=== PATIENT | female | born 1945 | race Caucasian/White ===

== ENCOUNTER 2023-08-29 09:05 | Emergency (ER) | payer OTHER ==
--- OUTSIDE RECORDS SUMMARY | 2023-08-29 09:10 | XMS REPORT | Continuity of Care Document ---
Author Name Unknown Address [address] [facility] [address] [place] [address] [facility] [address] [facility] [address] [place] [address] Care Team Providers Care [place] Name Role Phone DEJA HANKS Attending Clinician Unavailable RADIOLOGY Attending Clinician Unavailable Radiology Attending Clinician Unavailable Bonnie-Mbayo_A_AH Attending Clinician Unavailable Bonnie-Mbayo_A_AH Admitting Clinician Unavailable Payers Payer Name Policy Type Policy Number Effective Date Expirati on Date Source [facility] CLASS[facility]VALUE [id number] 2019 00:00:00 [facility]MEDICARE REPLACEMENT/ADVANT AGE - HMO) [id number] 2019 00:00:00 Allergies, Adverse Reactions, Alerts Allergy Name Allergy Type Status Severity Reaction(s) Onset Date Inactive Date Treating Clinician Comments Source NO KNOWN ALLERGIE S Drug Class Active [facility] Social History Social Habit Start Date Stop Date Quantity Comments Source Sex Assigned At [facility] Smoking Status Start Date Stop Date Source Unknown if ever smoked [facility] Procedures Procedure Date / Time Performed Performing Clinicia n Source XR CHEST 2 VW 2019-09-04 16:01:06 Robbin Romeo [facility] Encounters Start Date/Time End Date/Time Encounter Type Admission Type Attending Clinicians Care Facility Care Department Encounter ID Source 2020-04-26 13:25:00 2020-04-26 13:25:00 Outpatient [facility] [id number] [facility] 2020-03-29 13:20:00 2020-03-29 13:20:00 Outpatient DEJA MOSS [facility] [id number] [facility] 2019-10-01 00:00:00 2019-10-01 00:00:00 Outpatient R RADIOLOGY [facility] [id number] [facility] 2019-09-24 00:00:00 2019-09-24 00:00:00 Outpatient R RADIOLOGY [facility] [id number] [facility] 2019-09-04 10:40:00 2019-09-04 23:59:00 Hospital Encounter Radiology [facility] [id number] [facility] 2019-09-04 00:00:00 2019-09-04 00:00:00 Outpatient R RADIOLOGY [facility] [id number] [facility] 2019-05-02 03:48:00 2019-05-02 03:48:00 Outpatient Bonnie-Mbayo _A_AH VFP VFP [id number] [facility] 2019-05-02 03:48:00 2019-05-02 03:48:00 Outpatient Bonnie-Mbayo _A_AH VFP VFP [id number] [facility] 2019-04-10 07:19:00 2019-04-10 07:19:00 Outpatient Bonnie-Mbayo _A_AH VFP VFP [id number] [facility] Results Test Description Test Time Test Comments Results Resul t Comments Source XR CHEST 2 VW 2019-08-21 5 16:03:19 FINDINGS/IMPRESSION: The lungs are adequately expanded and clear without focal consolidation. Nopleural effusion or pneumothorax is visualized. The cardiomediastinal silhouette is normal in size. No acute osseous abnormality is identified. EXAM: XR CHEST 2 VW HISTORY: ?74 yearsyear-old Female [employer] COMPARISON: None [facility], [facility]iant Results Inft User - 09/04/2019 11:04 AM CDTEXAM: XR CHEST 2 VWHISTORY: 74 yearsyear-old Female N[employer]WE[employer] COMPARISON: NoneIMPRESSIONFINDING S/IMPRESSION:The lungs are adequately expanded and clear without focal consolidation. Nopleural effusion or pneumothorax is visualized.The cardiomediastinal silhouette is normal in size.No acute osseous abnormality is identified. [facility]
--- NOTE | 2023-08-29 10:23 | RAD REPORT ---
EXAM DESCRIPTION: CT - Facial Bones W/ Mpr - 08/29/2023 9:37 am CLINICAL HISTORY: Facial injury with pain COMPARISON: None TECHNIQUE: Computed axial tomography of the face was obtained. Coronal and sagittal reconstruction w as performed. All CT scans are performed using dose optimization technique as appropriate and may include automated exposure control or mA/KV adjustment according to patient size. FINDINGS: 5.6 centimeter mass left submental region. Minimally displaced fracture of left mandible parasymphysis A TMJ dislocation is not noted. The globes are intact. Fluid within the sinuses is not seen. IMPRESSION: Minimally displaced fracture left mandible parasymphysis 5.6 centimeter mass left submental region presumably hematoma
[2023-08-29] MEDS ORDERED: CEPHALEXIN 250 MG CAP ONE (11:29)
[2023-08-29] MEDS ORDERED: TRAMADOL HCL 50 MG TAB ONE (11:30)
--- NOTE | 2023-08-29 12:00 | EDPHYS ---
Physician Documentation [facility] Name: Adriana Askew Age: 78 yrs Sex: Female : 1945 Arrival Date: 08/29/2023 Time: 09:05 Bed 18 Private MD: ED Physician Chris Farias HPI: 08/28 12:48 This 78 yrs old Female presents to ER via Ambulatory with complaints of Fall Injury, rn Pain All Over. 12:48 Details of fall: The patient fell from an upright position, while walking. Onset: The rn symptoms/episode began/occurred 1 week(s) ago. Associated injuries: The patient sustained injury to the head. Severity of symptoms: At their worst the symptoms were moderate, in the emergency department the symptoms are unchanged. The patient has not experienced similar symptoms in the past. Patient states fall from standing 1 week ago. Struck chin on ground. Saw her dentist who did a Panorex and was negative for fracture. Patient has had a hematoma underneath the jaw since then and is still having pain when trying to eat and talk so came in for evaluation.. Historical: - Allergies: 09:29 No Known Allergies; kc6 - PSHx: 09:29 Arthroplasty of knee; arthroplasty of ALFRED hips; kc6 - Immunization history: Last tetanus immunization: - up to date. - Infectious Disease History:: Denies. - Social history:: Smoking status: Patient denies any tobacco usage or history of. - Family history:: not pertinent. - Hospitalizations: : No recent hospitalization is reported. ROS: 12:48 Constitutional: Negative for fever, chills, and weight loss, ENT: Positive for jaw pain rn and injury Neck: Negative for injury, pain, and swelling, Back: Negative for injury and pain, MS/Extremity: Negative for injury and deformity, Neuro: Negative for headache, weakness, numbness, tingling, and seizure, Exam: 12:48 Constitutional: This is a well developed, well nourished patient who is awake, alert, rn and in no acute distress. ENT: Mild tenderness mid to the left mandible with submental hematoma. No trismus noted. No intraoral injury noted. Neck: No Meningismus. Neuro: Awake and alert, GCS 15, oriented to person, place, time, and situation. Cranial nerves II-XII grossly intact. Motor strength 5/5 in all extremities. Sensory grossly intact. Cerebellar exam normal. Normal gait. Vital Signs: 09:25 BP 144 / 99; Pulse 102; Resp 18 S; Temp 98.2(O); Pulse Ox 98% on R/A; Weight 79.38 kg kc6 (R); Height 5 ft. 8 in. (R); 10:25 BP 140 / 89; Pulse 90; Resp 18 S; Pulse Ox 96% on R/A; kc6 12:08 BP 195 / 99; kc6 09:25 Body Mass Index 26.61 (79.38 kg, 172.72 cm) kc6 [place] Coma Score: 09:25 Eye Response: spontaneous(4). Motor Response: obeys commands(6). Verbal Response: kc6 oriented(5). Total: 15. Trauma Score (Adult): 09:25 Eye Response: spontaneous(1); Verbal Response: oriented(1); Motor Response: obeys kc6 commands(2); Systolic BP: > 89 mm Hg(4); Respiratory Rate: 10 to 29 per min(4); Stef Score: 15; Trauma Score: 12 MDM: 09:14 Patient medically screened. rn 08/28 09:24 Order name: CT Facial Bones W/O Con; Complete Time: 10:50 rn Administered Medications: 11:35 Drug: traMADol PO 50 mg PO once Route: PO; zl 12:09 Follow up: Response: No adverse reaction; Pain is decreased; RASS: Alert and Calm (0) kc6 11:35 Drug: Cephalexin PO 500 mg PO once Route: PO; zl 12:08 Follow up: Response: No adverse reaction kc Disposition Summary: 08/29/23 12:00 Discharge Ordered Notes: Location: Home rn Problem: new rn Symptoms: have improved rn Condition: Stable rn Diagnosis - Fracture of mandible rn Followup: rn - With: Bernard Omer DDS - When: 5 - 6 days - Reason: Recheck today's complaints, Re-evaluation by your physician Discharge Instructions: - Discharge Summary Sheet rn - Mandibular Fracture rn Forms: - Medication Reconciliation Form rn - Antibiotic rn post partum - Prescription Opioid Use rn - Patient Portal Instructions rn - Leadership Thank You Letter rn Prescriptions: - Cephalexin 500 mg Oral Capsule - take 1 capsule ORAL route every 12 hours for 10 days; 20 capsule; Refills: 0, rn Product Selection Permitted - Tramadol 50 mg Oral Tablet - take 1 tablet ORAL route every 8 hours as needed; 12 tablet; Refills: 0, rn Product Selection Permitted Signatures: Dispatcher [employer] Chris Reyes MD MD rn Campbell, Kaitlyn, RN RN kc6 El Shipman RN RN zl Corrections: (The following items were deleted from the chart) 12:51 12:48 Constitutional: This is a well developed, well nourished patient who is awake, rn alert, and in no acute distress. ENT: Mild tenderness mid to the left mandible with submental hematoma. No trismus noted. No intraoral injury noted. Neck: No Meningismus. rn
--- NOTE | 2023-08-29 12:00 | ER ---
Nurse's Notes [facility] Name: Adriana Askew Age: 78 yrs Sex: Female : 1945 Arrival Date: 08/29/2023 Time: 09:05 Bed 18 Private MD: Diagnosis: Fracture of mandible Presentation: 08/28 09:25 Chief complaint: Patient states: she fell while leaving the bank on the [place]. denies kc6 LOC, takes Ecotrin daily. Care prior to arrival: None. Mechanism of Injury: Fall from standing position. Trauma event details: Injury occurred in the [facility], Injury occurred: in a public building. Injury occurred: August 21, 2023. 09:25 Acuity: AMMY 3 kc6 09:25 Method Of Arrival: Ambulatory kc6 09:28 Coronavirus screen: At this time, the client does not indicate any symptoms associated kc6 with coronavirus-19. Ebola Screen: No symptoms or risks identified at this time. Initial Sepsis Screen: Does the patient meet any 2 criteria? HR > 90 bpm. Does the patient have a suspected source of infection? No. Patient's initial sepsis screen is negative. Risk Assessment: Do you want to hurt yourself or someone else? Patient reports no desire to harm self or others. Onset of symptoms was August 21, 2023. Trauma Activation: Not Applicable Physician: ED Physician; Name: ; Notified At: ; Arrived At: Physician: General Surgeon; Name: ; Notified At: ; Arrived At: Physician: Radiology; Name: ; Notified At: ; Arrived At: Physician: Respiratory; Name: ; Notified At: ; Arrived At: Physician: Lab; Name: ; Notified At: ; Arrived At: Historical: - Allergies: : No Known Allergies; kc6 - PSHx: : Arthroplasty of knee; arthroplasty of ALFRED hips; kc6 - Immunization history: Last tetanus immunization: - up to date. - Infectious Disease History:: Denies. - Social history:: Smoking status: Patient denies any tobacco usage or history of. - Family history:: not pertinent. - Hospitalizations: : No recent hospitalization is reported. Screenin: Abuse screen: Denies threats or abuse. Denies injuries from another. Tuberculosis kc6 screening: No symptoms or risk factors identified. 09:29 [facility] ED Fall Risk Assessment (Adult) History of falling in the last 3 months, kc6 including since admission Yes- single mechanical fall (1 pt) Confusion or Disorientation No (0 pts) Intoxicated or Sedated No (0 pts) Impaired Gait No (0 pts) Mobility Assist Device Used No (0 pt) Altered Elimination No (0 pt) Score/Fall Risk Level 0 - 2 = Low Risk. Nutritional screening: No deficits noted. Primary Survey: 09:25 NO uncontrolled hemorrhage observed. A: The client is awake and alert. The airway is kc6 patent. Breathing/Chest: Spontaneous respiratory effort, equal unlabored respirations, breath sounds clear bilaterally, regular pattern, symmetrical chest rise and fall. Circulation: No external hemorrhage present. Regular and strong central pulse, skin warm/dry/normal color. Disability Pupils are equal, round, reactive to light and accommodation. Client is alert. Exposure/Environment: All clothing and personal items were removed. Forensic evidence collection is not deemed to be indicated at this time. Items placed in patient belonging bag. There is no evidence of uncontrolled external bleeding. Obvious injury(ies) are noted at this time: swelling to the left lower jaw A warming method has been applied: A warm blanket has been provided to the patient. 10:25 Reassessment Alertness and Airway: Awake and alert. The airway is patent. Breathing: kc6 Spontaneous respiratory effort, equal unlabored respirations, breath sounds clear bilaterally, regular pattern with symmetrical chest rise and fall. Circulation: No external hemorrhage noted. Regular and strong central pulse, skin warm/dry/normal color. Disability: Pupils Pupils are equal, round, reactive to light and accomodation. Alert. Assessment: 09:25 General: Appears in no apparent distress. comfortable, well groomed, well developed, kc6 Behavior is calm, cooperative, appropriate for age. Pain: Complains of pain in face and mouth. Neuro: Level of Consciousness is awake, alert, obeys commands, Oriented to person, place, time, situation, Appropriate for age. EENT: No signs and/or symptoms were reported regarding the EENT system. Cardiovascular: Capillary refill < 3 seconds. Respiratory: Airway is patent Trachea midline Respiratory effort is even, unlabored, Respiratory pattern is regular, symmetrical. GI: No signs and/or symptoms were reported involving the gastrointestinal system. : No signs and/or symptoms were reported regarding the genitourinary system. Derm: No signs and/or symptoms reported regarding the dermatologic system. Skin is intact, is healthy with good turgor, Skin is pink, warm \T\ dry. Musculoskeletal: Circulation, motion, and sensation intact. Capillary refill < 3 seconds, Range of motion: intact in all extremities, Swelling present in neck. 10:25 Reassessment: Patient appears in no apparent distress at this time. No changes from kc6 previously documented assessment. Patient and/or family updated on plan of care and expected duration. Pain level reassessed. Patient is alert, oriented x 3, equal unlabored respirations, skin warm/dry/pink. 11:26 Reassessment: Patient appears in no apparent distress at this time. No changes from kc6 previously documented assessment. Patient and/or family updated on plan of care and expected duration. Pain level reassessed. Patient is alert, oriented x 3, equal unlabored respirations, skin warm/dry/pink. 12:08 Reassessment: Patient appears in no apparent distress at this time. No changes from kc6 previously documented assessment. Patient and/or family updated on plan of care and expected duration. Pain level reassessed. Patient is alert, oriented x 3, equal unlabored respirations, skin warm/dry/pink. Vital Signs: 09:25 BP 144 / 99; Pulse 102; Resp 18 S; Temp 98.2(O); Pulse Ox 98% on R/A; Weight 79.38 kg kc6 (R); Height 5 ft. 8 in. (R); 10:25 BP 140 / 89; Pulse 90; Resp 18 S; Pulse Ox 96% on R/A; kc6 12:08 BP 195 / 99; kc6 09:25 Body Mass Index 26.61 (79.38 kg, 172.72 cm) kc6 Stef Coma Score: 09:25 Eye Response: spontaneous(4). Motor Response: obeys commands(6). Verbal Response: kc6 oriented(5). Total: 15. Trauma Score (Adult): 09:25 Eye Response: spontaneous(1); Verbal Response: oriented(1); Motor Response: obeys kc6 commands(2); Systolic BP: > 89 mm Hg(4); Respiratory Rate: 10 to 29 per min(4); Stef Score: 15; Trauma Score: 12 ED Course: 09:08 Patient arrived in ED. mr 09:14 Chris Farias MD is Attending Physician. rn 09:20 Adriana Lopez, ROSITA is Primary Nurse. kc6 09:25 Patient has correct armband on for positive identification. Bed in low position. Call kc6 light in reach. Side rails up X 1. Adult w/ patient. 09:26 Triage completed. kc6 09:29 Arm band placed on. kc6 09:30 Thermoregulation: warm blanket given to patient. kc6 09:45 CT Facial Bones W/O Con In Process Unspecified. EDMS 11:59 Bernard Omer DDS is Referral Physician. rn 12:09 No provider procedures requiring assistance completed. Patient did not have IV access kc6 during this emergency room visit. Administered Medications: 11:35 Drug: traMADol PO 50 mg PO once Route: PO; zl 12:09 Follow up: Response: No adverse reaction; Pain is decreased; RASS: Alert and Calm (0) kc6 11:35 Drug: Cephalexin PO 500 mg PO once Route: PO; zl 12:08 Follow up: Response: No adverse reaction kc6 Medication: 12:09 VIS not applicable for this client. kc6 Outcome: 12:00 Discharge ordered by . rn 12:09 Discharged to home ambulatory, kc6 12:09 Condition: good 12:09 Discharge instructions given to patient, family, Instructed on discharge instructions, follow up and referral plans. no driving heavy equipment, medication usage, Demonstrated understanding of instructions, follow-up care, medications, Prescriptions given X 2, 12:09 Patient left the ED. kc6 Signatures: Dispatcher [employer] [facility] Kymberly Cox, [facility] Reg Chris Farias MD MD rn Adriana Lopez RN RN kc6 El Shipman RN RN zl
[2023-08-29 12:27] VITALS: BP 195/99; TEMP 98.2; O2SAT 96
== END 2023-08-29 12:09 | disposition home or self-care (01) ==
LOC: ER 09:05
DX: S02.66XA Fracture of symphysis of mandible, initial encounter for closed fracture (principal); W18.30XA Fall on same level, unspecified, initial encounter; Y93.9 Activity, unspecified; Y92.9 Unspecified place or not applicable; Z96.659 Presence of unspecified artificial knee joint; Z96.643 Presence of artificial hip joint, bilateral
CPT/HCPCS: 70486; 76377; 99284

== ENCOUNTER 2023-12-23 02:55 | Emergency (ER) | payer OTHER ==
--- OUTSIDE RECORDS SUMMARY | 2023-12-23 02:58 | XMS REPORT | Continuity of Care Document ---
Author Name Unknown Address [address] [facility] [address] [place] [address] [facility] Address [address] [facility] [address] [place] [address] Care Team Providers Care Drier And Evaporator Operator Name Role Phone DEJA HANKS Attending Clinician Unavailable RADIOLOGY Attending Clinician Unavailable Radiology Attending Clinician Unavailable Bonnie-Mbayo_A_AH Attending Clinician Unavailable Bonnie-Mbayo_A_AH Admitting Clinician Unavailable Payers Payer Name Policy Type Policy Number Effective Date Expirati on Date Source [employer] PLUS CLASSIC/VALUE [id number] 2019 00:00:00 [facility] [place] (MEDICARE REPLACEMENT/ADVANT AGE - HMO) [id number] 2019 00:00:00 Allergies, Adverse Reactions, Alerts Allergy Name Allergy Type Status Severity Reaction(s) Onset Date Inactive Date Treating Clinician Comments Source NO KNOWN ALLERGIE S Drug Class Active [facility] Social History Social Habit Start Date Stop Date Quantity Comments Source Sex Assigned At [facility] Smoking Status Start Date Stop Date Source Unknown if ever smoked [facility] Procedures Procedure Date / Time Performed Performing Clinicia n Source XR CHEST 2 VW 2019-09-04 16:01:06 [facility] Encounters Start Date/Time End Date/Time Encounter Type Admission Type Attending Clinicians Care Facility Care Department Encounter ID Source 2020-04-26 13:25:00 2020-04-26 13:25:00 Outpatient [facility] [id number] [facility] 2020-03-29 13:20:00 2020-03-29 13:20:00 Outpatient DEJA MOSS [facility] [id number] [facility] 2019-10-01 00:00:00 2019-10-01 00:00:00 Outpatient R RADIOLOGY [facility] [id number] [facility] 2019-09-24 00:00:00 2019-09-24 00:00:00 Outpatient R RADIOLOGY [facility] [id number] [facility] 2019-09-04 10:40:00 2019-09-04 23:59:[address] [facility] [id number] [facility] 2019-09-04 00:00:00 2019-09-04 00:00:00 Outpatient R RADIOLOGY [facility] [id number] [facility] 2019-05-02 03:48:00 2019-05-02 03:48:00 Outpatient Bonnie-Mbayo _A_AH VFP VFP [id number] [facility] 2019-05-02 03:48:00 2019-05-02 03:48:00 Outpatient Bonnie-Mbayo _A_AH VFP VFP [id number] [facility] 2019-04-10 07:19:00 2019-04-10 07:19:00 Outpatient Bonnie-Mbayo _A_AH VFP VFP [id number] [facility] Results Test Description [...] in size.No acute osseous abnormality is identified. [facility]
[2023-12-23] MEDS ORDERED: NA CHLORIDE 0.9% 1,000 ML ONE (03:33)
[2023-12-23] MEDS ORDERED: ONDANSETRON 4 MG/2 ML VIAL ONE (03:33)
[2023-12-23] MEDS ORDERED: FENTANYL CITR 100 MCG/2 ML ONE (03:33)
[2023-12-23 03:54] LABS: Absolute Basophils 0.1 K/uL (0-0.5); Absolute Eosinophils 0.3 K/uL (0-0.5); Absolute Lymphocytes (CBC) 2.6 K/uL (0.7-4.9); Absolute Monocytes 0.8 K/uL (0.1-1.3); Basophils % 0.6 % (0-1.3); Eosinophils % 2.6 % (0-4.4); Hematocrit 42.4 % (36.0-45.0); Hemoglobin 13.9 g/dL (12.0-15.0); Lymphocytes % 24.2 % (15.3-44.8); MCH 31.6 pg (27.0-35.0); MCHC 32.7 g/dL (32.0-36.0); MCV 96.6 fL (80-100); MPV 8.1 fL (7.6-11.3); Monocytes % 7.3 % (3.3-12.3); Neutrophils % 65.3 % (41.7-73.7); Platelets 259 thou/uL (152-406); RBC Red Blood Cell Count 4.39 M/uL (3.86-4.86); Red Cell Distribution Width 13.7 % (12.1-15.2)
[2023-12-23 04:16] LABS: PT Prothrombin Time 11.4 SECONDS (9.4-12.5); Protime INR 1.02
[2023-12-23 04:28] LABS: ALT/SGPT 27 U/L (13-56); AST/SGOT 21 U/L (15-37); Albumin 3.9 g/dL (3.4-5.0); Albumin/Globulin Ratio 1.3 (1.1-1.8); Alkaline Phosphatase 57 U/L (45-117); BUN Blood Urea Nitrogen 38 mg/dL (7-18); Bicarbonate 25 mEq/L (21-32); Bilirubin Total 0.6 mg/dL (0.2-1.0); Glomerular Filtration Rate 46 ml/min (=/>90); Glucose Level 101 mg/dL (74-106); Magnesium 1.9 mg/dL (1.6-2.4); NT PRO-BNP 419 pg/mL (<450); Protein, Total 6.9 g/dL (6.4-8.2); Sodium Level 138 mEq/L (136-145)
[2023-12-23 04:30] LABS: Bilirubin Direct < 0.2 mg/dL (0-0.2); Bilirubin Indirect, Calculated 0.4 mg/dL (0.2-0.8)
--- NOTE | 2023-12-23 05:03 | ER ---
Nurse's Notes [facility] Name: Adriana Askew Age: 78 yrs Sex: Female : 1945 Arrival Date: 12/23/2023 Time: 02:55 Bed 14 Private MD: Diagnosis: Fall on same level, unspecified;Displaced fracture of greater trochanter of left femur-periprosthetic;Unspecified kidney failure Presentation: 12/22 03:01 Chief complaint: Patient states: I WAS WALKING WITH MY WALKER WHEN SUDDENLY FELL. HIT ha1 BACK OF HEAD, NO BLEEDING, NO LOC. PAIN AT LEFT HIP, LEG AND BACK. 03:01 Coronavirus screen: Vaccine status: Patient reports receiving the 2nd dose of the covid ha1 vaccine. [employer]. Ebola Screen: No symptoms or risks identified at this time. Initial Sepsis Screen: Does the patient meet any 2 criteria? No. Patient's initial sepsis screen is negative. Does the patient have a suspected source of infection? No. Patient's initial sepsis screen is negative. Risk Assessment: Do you want to hurt yourself or someone else? Patient reports no desire to harm self or others. Onset of symptoms was December 23, 2023. 03:01 Method Of Arrival: Wheelchair ha1 03:01 Acuity: AMMY 3 ha1 03:15 Care prior to arrival: None. Mechanism of Injury: Fall from standing position. Trauma br2 event details: Injury occurred in the [facility], Injury occurred: at home. Injury occurred: December 23, 2023. Triage Assessment: 03:01 General: Appears uncomfortable, Behavior is cooperative. Pain: Complains of pain in ha1 LEFT HIP, LEFT LEG, AND BACK. 03:01 Neuro: Level of Consciousness is awake, alert, obeys commands, Oriented to person, ha1 place, time, situation. Respiratory: Airway is patent Respiratory effort is even, unlabored, Respiratory pattern is regular, symmetrical. Historical: - Allergies: 03:22 No Known Allergies; ha1 - Home Meds: 03:22 Metoprolol Tartrate Oral [Active]; Aspirin Oral [Active]; atorvastatin oral [Active]; ha1 amlodipine oral [Active]; citalopram oral [Active]; - PMHx: 03:22 Hypercholesterolemia; Hypertensive disorder; kidney disease; Diabetes mellitus; ha1 - PSHx: 03:22 arthroplasty of ALFRED hips; Arthroplasty of knee; ha1 - Immunization history:: Adult Immunizations up to date, Client reports receiving the 2nd dose of the Covid vaccine, Last tetanus immunization: up to date Flu vaccine is up to date. - Infectious Disease History:: Denies. - Immunization history: Last tetanus immunization: unknown. - Social history:: Smoking status: Patient denies any tobacco usage or history of. - Family history:: not pertinent. Screenin:15 [facility] ED Fall Risk Assessment (Adult) History of falling in the last 3 months, br2 including since admission Yes- single mechanical fall (1 pt) Confusion or Disorientation No (0 pts) Intoxicated or Sedated No (0 pts) Impaired Gait No (0 pts) Mobility Assist Device Used No (0 pt) Altered Elimination No (0 pt) Score/Fall Risk Level 0 - 2 = Low Risk Oriented to surroundings. Abuse screen: Denies threats or abuse. Denies injuries from another. Nutritional screening: No deficits noted. Tuberculosis screening: No symptoms or risk factors identified. Primary Survey: 03:15 NO uncontrolled hemorrhage observed. Breathing/Chest: Spontaneous respiratory effort, br2 equal unlabored respirations, breath sounds clear bilaterally, regular pattern, symmetrical chest rise and fall. Respiratory effort: spontaneous, Breath sounds: clear, Respiratory pattern: regular, Chest inspection: symmetrical rise and fall of the chest. Circulation: No external hemorrhage present. Regular and strong central pulse, skin warm/dry/normal color. Pulses: palpable right radial artery, left radial artery and left dorsalis pedis artery. Circulation: Skin color: pink, Skin temperature: warm. Disability Client is alert. Client responds to verbal stimuli. Client reponds to painful stimuli. Exposure/Environment: A warming method has been applied: A warm blanket has been provided to the patient. Reassessment. 06:43 Reassessment Breathing: Spontaneous respiratory effort, equal unlabored respirations, br2 breath sounds clear bilaterally, regular pattern with symmetrical chest rise and fall. Respiratory effort Spontaneous Unlabored Breath sounds Clear Respiratory pattern Regular Chest inspection Symmetrical. Secondary Survey: 03:15 HEENT: No deficits noted. Gastrointestinal: Abdomen is soft, Bowel sounds present in br2 all quadrants. Palpation No deficit noted. : No signs and/or symptoms were reported regarding the genitourinary system. Assessment: 03:15 Reassessment: Patient and/or family updated on plan of care and expected duration. Pain br2 level reassessed. Patient is alert, oriented x 3, equal unlabored respirations, skin warm/dry/pink. General: Appears uncomfortable, Behavior is calm, cooperative. Pain: Complains of pain in lateral aspect of left knee. Neuro: [place] Agitation-Sedation Scale (RASS): 0 - Alert and Calm Level of Consciousness is awake, alert, obeys commands, Oriented to person, place, time, situation. EENT: No signs and/or symptoms were reported regarding the EENT system. Cardiovascular: Capillary refill < 3 seconds. Respiratory: Airway is patent Respiratory effort is even, unlabored, Respiratory pattern is. GI: Abdomen is flat, non-distended. : No signs and/or symptoms were reported regarding the genitourinary system. Derm: Skin is intact, Skin is dry, Skin is normal, Skin temperature is warm. Musculoskeletal: Circulation, motion, and sensation intact. Capillary refill < 3 seconds, Range of motion: intact in all extremities. Vital Signs: 03:01 BP 162 / 82; Pulse 63; Resp 17 S; Temp 97.6(T); Pulse Ox 100% on R/A; Weight 72.57 kg; ha1 Height 5 ft. 6 in. ; 05:50 BP 131 / 68; Pulse 63; Resp 18; Pulse Ox 97% ; Pain 3/10; br2 06:42 BP 134 / 70; Pulse 61; Resp 18 S; Temp 97.2; Pulse Ox 96% on R/A; Pain 3/10; br2 03:01 Body Mass Index 25.82 (72.57 kg, 167.64 cm) ha1 05:50 Pain Scale: Adult br2 06:42 Pain Scale: Adult br2 Stef Coma Score: 03:15 Eye Response: spontaneous(4). Motor Response: obeys commands(6). Verbal Response: br2 oriented(5). Total: 15. Trauma Score (Adult): 03:15 Eye Response: spontaneous(1); Verbal Response: oriented(1); Motor Response: obeys br2 commands(2); Systolic BP: > 89 mm Hg(4); Respiratory Rate: 10 to 29 per min(4); Stef Score: 15; Trauma Score: 12 ED Course: 02:58 Patient arrived in ED. [email or web address] 03:03 Yovani Cazares MD is Attending Physician. ga 03:15 Patient has correct armband on for positive identification. Bed in low position. Call br2 light in reach. Side rails up X 1. 03:15 Provided Education on: PLAN OF CARE. br2 03:16 Garima Laguna, ROSITA is Primary Nurse. br2 03:22 Triage completed. ha1 03:30 Thermoregulation: warm blanket given to patient. br2 03:37 Inserted saline lock: 20 gauge in right antecubital area, using aseptic technique. br2 Blood collected. Flushed with 10 mL NS. 03:40 EKG done, by proc tech. af3 03:46 XRAY Chest (1 view) In Process Unspecified. EDMS 03:52 Basic Metabolic Panel Sent. br2 03:52 CBC with Diff Sent. br2 03:52 LFT's Sent. br2 03:52 Magnesium Sent. br2 03:52 NT PRO-BNP Sent. br2 03:52 PT-INR Sent. br2 03:52 Troponin HS Sent. br2 04:25 CT Head C Spine In Process Unspecified. EDMS 04:25 CT Chest Abdomen Pelvis W/O Contrast In Process Unspecified. EDMS 05:05 Pelvis XRAY In Process Unspecified. EDMS 05:05 Hip Left 2 View XRAY In Process Unspecified. EDMS 05:05 Femur Left XRAY In Process Unspecified. EDMS 05:05 Knee Left 3 View XRAY In Process Unspecified. EDMS 05:05 Tib Fib Left XRAY In Process Unspecified. EDMS 05:28 Coats cath inserted, using sterile technique, 16 Fr., by ED staff, balloon inflated, to ha1 gravity drainage, urine specimen collected. 05:49 No provider procedures requiring assistance completed. br2 06:43 Patient maintains SpO2 saturation greater than 95% on room air. br2 06:44 Patient transferred, IV remains in place. br2 06:44 Arm band placed on. br2 Administered Medications: 03:37 Drug: NS 0.9% IV 500 ml 500 ml IV at 1 bolus once; to be given as a bolus over 30 br2 minutes Volume: 500 ml; Route: IV; Rate: 1 bolus; Site: right antecubital; 04:15 Follow up: IV Status: Completed infusion; IV Intake: 500ml br2 03:37 Drug: fentaNYL (PF) IVP 25 mcg IVP once Route: IVP; Site: right antecubital; br2 04:00 Follow up: Response: No adverse reaction br2 03:37 Drug: Ondansetron IVP 4 mg IVP once; over 2 minutes Route: IVP; Site: right antecubital;br2 04:00 Follow up: Response: No adverse reaction br2 Medication: 06:44 VIS not applicable for this client. br2 Intake: 04:15 IV: 500ml; Total: 500ml. br2 05:50 IV: 500ml; Total: 1000ml. br2 Output: 05:50 Urine: 300ml (Coats); Total: 300ml. br2 Outcome: 05:03 ER care complete, transfer ordered by MD. koroma 05:49 PENDING TRANSFERPatient's length of stay extended due to br2 06:43 Transferred by ground EMS [facility]. to [facility], Transfer form br2 completed. X-rays sent w/ patient. 06:43 Condition: stable 06:45 Patient left the ED. br2 Signatures: Dispatcher [employer] EDMS Yovani Cazares MD MD cha Jeffries, Jennifer [email or web address] Valeria Burrell RN RN ha1 Garima Laguna RN RN br2 Bhakti Dong
--- NOTE | 2023-12-23 05:03 | EDPHYS ---
Physician Documentation [facility] Name: Adriana Askew Age: 78 yrs Sex: Female : 1945 Arrival Date: 12/23/2023 Time: 02:55 Bed 14 Private MD: JULIO Physician Yovani Cazares HPI: 12/22 03:49 This 78 yrs old Female presents to ER via Wheelchair with complaints of Fall ga Injury, LEFT SIDED PAIN. 03:49 Details of fall: The patient fell from an upright position, while walking. Onset: The ga symptoms/episode began/occurred yesterday. Associated injuries: The patient sustained pelvis and left leg. Severity of symptoms: At their worst the symptoms were mild, moderate, in the emergency department the symptoms are unchanged. The patient has not experienced similar symptoms in the past. Historical: - Allergies: 03:22 No Known Allergies; ha1 - Home Meds: 03:22 Metoprolol Tartrate Oral [Active]; Aspirin Oral [Active]; atorvastatin oral [Active]; ha1 amlodipine oral [Active]; citalopram oral [Active]; - PMHx: 03:22 Hypercholesterolemia; Hypertensive disorder; kidney disease; Diabetes mellitus; ha1 - PSHx: 03:22 arthroplasty of ALFRED hips; Arthroplasty of knee; ha1 - Immunization history:: Adult Immunizations up to date, Client reports receiving the 2nd dose of the Covid vaccine, Last tetanus immunization: up to date Flu vaccine is up to date. - Infectious Disease History:: Denies. - Immunization history: Last tetanus immunization: unknown. - Social history:: Smoking status: Patient denies any tobacco usage or history of. - Family history:: not pertinent. ROS: 03:49 Constitutional: Negative for fever, chills, and weight loss, Eyes: Negative for injury, ga pain, redness, and discharge, ENT: Negative for injury, pain, and discharge, Neck: Negative for injury, pain, and swelling, Cardiovascular: Negative for chest pain, palpitations, and edema, Respiratory: Negative for shortness of breath, cough, wheezing, and pleuritic chest pain, Abdomen/GI: Negative for abdominal pain, nausea, vomiting, diarrhea, and constipation, Back: Negative for injury and pain, : Negative for injury, bleeding, discharge, and swelling, Skin: Negative for injury, rash, and discoloration, Psych: Negative for depression, anxiety, suicide ideation, homicidal ideation, and hallucinations, Allergy/Immunology: Negative for hives, rash, and allergies, Endocrine: Negative for neck swelling, polydipsia, polyuria, polyphagia, and marked weight changes, Hematologic/Lymphatic: Negative for swollen nodes, abnormal bleeding, and unusual bruising, 03:49 MS/extremity: Positive for decreased range of motion, ecchymosis, pain, of the buttocks and left leg, Exam: 03:49 Constitutional: This is a well developed, well nourished patient who is awake, alert, ga and in no acute distress. Eyes: Pupils equal round and reactive to light, extra-ocular motions intact. Lids and lashes normal. Conjunctiva and sclera are non-icteric and not injected. Cornea within normal limits. Periorbital areas with no swelling, redness, or edema. ENT: Nares patent. No nasal discharge, no septal abnormalities noted. Tympanic membranes are normal and external auditory canals are clear. Oropharynx with no redness, swelling, or masses, exudates, or evidence of obstruction, uvula midline. Mucous membranes moist. Neck: Trachea midline, no thyromegaly or masses palpated, and no cervical lymphadenopathy. Supple, full range of motion without nuchal rigidity, or vertebral point tenderness. No Meningismus. Chest/axilla: Normal chest wall appearance and motion. Nontender with no deformity. No lesions are appreciated. Cardiovascular: Regular rate and rhythm with a normal S1 and S2. No gallops, murmurs, or rubs. Normal PMI, no JVD. No pulse deficits. Respiratory: Lungs have equal breath sounds bilaterally, clear to auscultation and percussion. No rales, rhonchi or wheezes noted. No increased work of breathing, no retractions or nasal flaring. Abdomen/GI: Soft, non-tender, with normal bowel sounds. No distension or tympany. No guarding or rebound. No evidence of tenderness throughout. Back: No spinal tenderness. No costovertebral tenderness. Full range of motion. Female : Normal external genitalia. Neuro: Awake and alert, GCS 15, oriented to person, place, time, and situation. Cranial nerves II-XII grossly intact. Motor strength 5/5 in all extremities. Sensory grossly intact. Cerebellar exam normal. Normal gait. Psych: Awake, alert, with orientation to person, place and time. Behavior, mood, and affect are within normal limits. 03:49 Head/face: Noted is hematoma, that is mild, of the left side of the back of head and right side of the back of head, 03:49 ECG was reviewed by the Attending Physician. [facility] Vital Signs: 03:01 BP 162 / 82; Pulse 63; Resp 17 S; Temp 97.6(T); Pulse Ox 100% on R/A; Weight 72.57 kg; ha1 Height 5 ft. 6 in. ; 05:50 BP 131 / 68; Pulse 63; Resp 18; Pulse Ox 97% ; Pain 3/10; br2 06:42 BP 134 / 70; Pulse 61; Resp 18 S; Temp 97.2; Pulse Ox 96% on R/A; Pain 3/10; br2 03:01 Body Mass Index 25.82 (72.57 kg, 167.64 cm) ha1 05:50 Pain Scale: Adult br2 06:42 Pain Scale: Adult br2 Stef Coma Score: 03:15 Eye Response: spontaneous(4). Motor Response: obeys commands(6). Verbal Response: br2 oriented(5). Total: 15. Trauma Score (Adult): 03:15 Eye Response: spontaneous(1); Verbal Response: oriented(1); Motor Response: obeys br2 commands(2); Systolic BP: > 89 mm Hg(4); Respiratory Rate: 10 to 29 per min(4); Stef Score: 15; Trauma Score: 12 MDM: 03:03 Medical Screening Exam initiated [facility] 03:53 Differential diagnosis: abrasion, closed head injury, contusion, fracture, laceration, ga multiple trauma, sprain, strain. Data reviewed: vital signs, nurses notes, lab test result(s), EKG, radiologic studies, CT scan, plain films. Consideration of Admission/Observation Escalation of care including admission/observation considered. I considered the following discharge prescriptions or medication management in the emergency department Medications were administered in the Emergency Department. See MAR. Independent interpretation of the following test(s) in the Emergency Department EKG: See my EKG interpretation above. Test considered but Not performed: MRI: NO MRI. Historians other than the Patient: Daughter/Son: DAUGHTER WELL INFORMED. Care significantly affected by the following chronic conditions: Diabetes, Hypertension, Obesity, Chronic Kidney Disease. Counseling: I had a detailed discussion with the patient and/or guardian regarding the historical points, exam findings, and any diagnostic results supporting the discharge/admit diagnosis, the presence of at least one elevated blood pressure reading (>120/80) during this emergency department visit, lab results. 05:04 ED course: FAMILY WANTS PERLITA CARRASCO. [facility] 12/22 03:04 Order name: Basic Metabolic Panel; Complete Time: 04:41 [facility] 12/22 03:04 Order name: CBC with Diff; Complete Time: 04:41 [facility] 12/22 03:04 Order name: LFT's; Complete Time: 04:41 [facility] 12/22 03:04 Order name: Magnesium; Complete Time: 04:41 [facility] 12/22 03:04 Order name: NT PRO-BNP; Complete Time: 04:41 [facility] 12/22 03:04 Order name: PT-INR; Complete Time: 04:41 [facility] 12/22 03:04 Order name: Troponin HS; Complete Time: 04:41 [facility] 12/22 03:04 Order name: Urinalysis w/ reflexes; Complete Time: 06:10 [facility] 12/22 03:04 Order name: XRAY Chest (1 view) [facility] 12/22 03:04 Order name: CT Head C Spine [facility] 12/22 03:49 Order name: Pelvis XRAY [facility] 12/22 03:49 Order name: Hip Left 2 View XRAY [facility] 12/22 03:49 Order name: Femur Left XRAY [facility] 12/22 03:49 Order name: Knee Left 3 View XRAY [facility] 12/22 03:49 Order name: CT Chest Abdomen Pelvis W/O Contrast [facility] 12/22 04:41 Order name: Tib Fib Left XRAY [facility] 12/22 03:04 Order name: EKG; Complete Time: 03:05 [facility] 12/22 03:04 Order name: Cardiac monitoring; Complete Time: 03:39 [facility] 12/22 03:04 Order name: EKG - Nurse/Tech; Complete Time: 03:31 [facility] 12/22 03:04 Order name: IV Saline Lock; Complete Time: 03:51 [facility] 12/22 03:04 Order name: Labs collected and sent; Complete Time: 03:51 [facility] 12/22 03:04 Order name: O2 Per Protocol; Complete Time: 03:51 [facility] 12/22 03:04 Order name: O2 Sat Monitoring; Complete Time: 03:51 ga 12/22 05:27 Order name: Coats; Complete Time: 05:28 ha1 EC:49 Rate is 57 beats/min. Rhythm is regular. QRS [place] is Normal. SD interval is normal. QRS ga interval is normal. QT interval is normal. No Q waves. T waves are Normal. No ST changes noted. Clinical impression: Sinus bradycardia and No evidence of ischemia. Interpreted by me. Reviewed by me. Administered Medications: 03:37 Drug: NS 0.9% IV 500 ml 500 ml IV at 1 bolus once; to be given as a bolus over 30 br2 minutes Volume: 500 ml; Route: IV; Rate: 1 bolus; Site: right antecubital; 04:15 Follow up: IV Status: Completed infusion; IV Intake: 500ml br2 03:37 Drug: fentaNYL (PF) IVP 25 mcg IVP once Route: IVP; Site: right antecubital; br2 04:00 Follow up: Response: No adverse reaction br2 03:37 Drug: Ondansetron IVP 4 mg IVP once; over 2 minutes Route: IVP; Site: right antecubital;br2 04:00 Follow up: Response: No adverse reaction br2 Disposition Summary: 12/23/23 05:03 Transfer Ordered Notes: Transfer Location: [facility] ga Reason: Higher level of care ga Condition: Stable ga Problem: new ga Symptoms: have improved ga Accepting Physician: DR MADELYN esteves(12/23/23 06:45) br2 Diagnosis - Fall on same level, unspecified ga - Displaced fracture of greater trochanter of left femur - periprosthetic ga - Unspecified kidney failure ga Forms: - Medication Reconciliation Form ga - SBAR form ga Signatures: Dispatcher [employer] EDMS Yovani Cazares MD MD cha Ayala, Heidy, RN RN ha1 Garima Laguna RN RN br2 Corrections: (The following items were deleted from the chart) 03:49 03:49 Chest Abdomen Pelvis Wo Con+CT.RAD.BRZ ordered. EDMS EDMS 04:05 03:05 Chest Abdomen Pelvis W Con+CT.RAD.BRZ ordered. EDMS EDMS 04:41 04:41 Tib Fib Left+RAD.RAD.BRZ ordered. EDMS EDMS 05:03 05:03 to perlita koroma cha 06:45 05:[address] MADELYN hopkins cha br2
--- NOTE | 2023-12-23 05:58 | RAD REPORT ---
EXAM DESCRIPTION: Head C Spine Mpr Wo Con CLINICAL HISTORY: PAIN COMPARISON: None available TECHNIQUE: Axial CT of the head obtained from the skull apex to the skull base without contrast. Axia l CT images of the cervical spine obtained without contrast. This exam was performed according to our departmental dose-optimization program, which includes automated exposure control, adjustment of the mA and/or kV according to patient size and/or use of iterative reconstruction technique. FINDINGS: Head CT: No acute intracranial hemorrhage identified. No mass, mass effect, shift of the midline, abnormal ext ra-axial fluid collection or CT evidence of acute ischemic change identified. The ventricular system and sulcal spaces are age appropriate. Scattered areas of hypodensity throughout the suprate ntorial white matter are nonspecific and may be related to chronic small vessel ischemic change. The visualized paranasal sinuses and the mastoids are clear. No skull fracture identified. Visualiz ed orbits and globes are unremarkable. Atherosclerotic calcification of the intracranial internal carotid arteries. Cervical CT : Alignment of the cervical spine is maintained without evidence of subluxation. The atlantoaxial, at lantodental, and occipitoatlantal intervals are preserved. No fracture identified. Vertebral body height preserved. Prevertebral soft tissues are unremarkable. Mild to moderate multilevel loss of intervertebral disc height with endplate spondylosis, facet arthr opathy, and uncovertebral spurring. Posterior disc osteophyte complex at multiple levels mildly encroach upon the anterior spinal canal. Mild neural foraminal narrowing. Visualized thyroid is unremarkable. No cervical lymphadenopathy. No pneumothorax in the visualized lung apices. Degenerative change of the temporomandibular joints. Redemonstrated fracture of the left mandibular ramus with evidence of healing. Interval loss of left first and second molars as well as the left first molar.. IMPRESSION: 1. No acute intracranial abnormality by CT criteria. 2. No acute fracture or subluxation of the cervical spine. 3. Multilevel degenerative change of the cervical spine. 4. Redemonstrated fracture of the left mandibular ramus with evidence of healing. 5. Interval loss of left first and second molars as well as the left first molar. Electronically signed by: Allen Olson DO 12/23/2023 05:36 AM CDT RP [id number] Due to temporary technical issues with the [email or web address] reporting system, reports are being magalis d by the in-house radiologist without review as a courtesy to ensure prompt reporting the interpreting radiologist is fully responsible for the content of the report. Transcribed Date/Time: 12/23/2023 5:58 AM
--- NOTE | 2023-12-23 05:58 | RAD REPORT ---
EXAM DESCRIPTION: Chest Abd Pelvis Wo Con CLINICAL HISTORY: PAIN COMPARISON: None Available. TECHNIQUE: CT of the chest, abdomen and pelvis performed without IV contrast. Evaluation of the solid organs and vasculature is suboptimal due to lack of IV contrast. This exam was performed according to our departmental dose-optimization program, which includes automated exposure control, adjustment of the mA and/or kV according to patient size and/or use of iterative reconstruction technique. FINDINGS: Chest: Thyroid: No abnormalities of the visualized thyroid. Great Vessels: Great vessels have normal anatomic configuration. Thoracic Aorta: Atherosclerotic calcification of thoracic aorta. Pulmonary arteries: The main pulmonary artery is not dilated. Heart: Coronary artery atherosclerosis. Lymph Nodes: No enlarged mediastinal lymph nodes identified. Esophagus: Small hiatal hernia. Other: No additional findings. Lungs: No airspace opacities identified. Right lung calcified granulomas. Elevation right hemidiaphra gm. Pleura: No pleural effusion or pneumothorax. Trachea/Airways: No abnormalities of the visualized trachea or airways. Abdomen: Liver: The liver has normal size and density. Gallbladder: No calcified gallstones. Spleen, Pancreas, and Adrenal Glands: The spleen, pancreas, and adrenal glands are unremarkable. Kidneys: The kidneys have normal size and contour without evidence of solid mass or hydronephrosis. Vasculature: Aortoiliac atherosclerosis. IVC is unremarkable. Left ovarian cyst measuring 4.1 cm. No follow-up imaging recommended. Stomach: Small hiatal hernia. Other: No free intraperitoneal air. No free fluid or lymphadenopathy. Pelvis: Bladder: Urinary bladder is unremarkable. Bowel: No dilated loops of large or small bowel. Scattered diverticula of the colon. Large amount o f stool. Appendix: Not well individually identified. Pelvis: No adnexal masses. Portions of the pelvis obscured by beam hardening artifact. Bones: Bilateral total hip arthroplasties. Multilevel loss of intervertebral disc height with endplat e spondylosis and facet arthropathy. Mild S-shaped curvature of the thoracolumbar spine. IMPRESSION: 1. No acute inflammatory or obstructive process identified. 2. Large amount of stool. 3. Diverticulosis without evidence of acute diverticulitis. 4. Small hiatal hernia. 5. Coronary artery atherosclerosis. Electronically signed by: Allen Olson DO 12/23/2023 05:42 AM CDT RP 4ZDM Due to temporary technical issues with the [employer] reporting system, reports are being magalis d by the in-house radiologist without review as a courtesy to ensure prompt reporting the interpreting radiologist is fully responsible for the content of the report. Transcribed Date/Time: 12/23/2023 5:58 AM
[2023-12-23 06:10] LABS: Specific Gravity 1.014 (1.005-1.030); Sqamous Epithelial None Seen /HPF (None Seen); Urine Bacteria None Seen /HPF (<20); Urine Bilirubin NEGATIVE (Negative); Urine Blood Negative (Negative); Urine Clarity Clear (Clear); Urine Color Light-Yellow (Yellow); Urine Culture Reflex Order NOT NEEDED; Urine Glucose NEGATIVE (Negative); Urine Ketones NEGATIVE (Negative); Urine Microscopic Reflex YN ORDER UMIC; Urine Nitrite NEGATIVE (Negative); Urine Protein 1+ (Negative); Urine RBC None Seen /HPF (None Seen); Urine Urobilinogen Normal (Normal); Urine WBC <5 /HPF (<5); Urine pH 5.5 (5.0-7.0)
--- NOTE | 2023-12-23 06:10 | RAD REPORT ---
EXAM DESCRIPTION: Chest Single View CLINICAL HISTORY: PAIN COMPARISON: None. FINDINGS: 1 view(s) of the chest. Tubes and lines: Leads overlie the chest. Cardiomediastinal silhouette: Atherosclerotic calcification of thoracic aorta. Heart is not enlarged. Lungs: No consolidation, pneumothorax, or pleural effusion. Elevation right hemidiaphragm. Bones: No acute osseous abnormality. Degenerative change of the spine and shoulders. Upper abdomen: No abnormality identified. IMPRESSION: 1. No acute pulmonary process identified. Electronically signed by: Allen Olson DO 12/23/2023 05:25 AM CDT 4ZDM Due to temporary technical issues with the P[employer] reporting system, reports are being magalis d by the in-house radiologist without review as a courtesy to ensure prompt reporting the interpreting radiologist is fully responsible for the content of the report. Transcribed Date/Time: 12/23/2023 6:10 AM
--- NOTE | 2023-12-23 06:12 | RAD REPORT ---
XAM DESCRIPTION: Pelvis CLINICAL HISTORY: PAIN COMPARISON: None. FINDINGS: 2 views of the left hip. Bilateral total hip arthroplasties. Acute appearing fracture of the proximal left femoral diaphysis. Osteopenia. Atherosclerosis. Partial visualization of levoconvex scoliosis of the lumbar spine. IMPRESSION: Acute appearing periprosthetic nondisplaced fracture of the proximal left femoral diaphysis. Electronically signed by: Allen Olson DO 12/23/2023 05:29 AM CDT RP 4ZDM Due to temporary technical issues with the PACS/[employer] reporting system, reports are being magalis d by the in-house radiologist without review as a courtesy to ensure prompt reporting the interpreting radiologist is fully responsible for the content of the report. Transcribed Date/Time: 12/23/2023 6:12 AM
--- NOTE | 2023-12-23 06:14 | RAD REPORT ---
EXAM DESCRIPTION: Hip Left 2 View CLINICAL HISTORY: PAIN COMPARISON: None. FINDINGS: 2 views of the left hip. Left total hip arthroplasty. Acute appearing fracture of the proximal left femoral diaphysis. Osteopenia. Atherosclerosis. IMPRESSION: Acute appearing periprosthetic nondisplaced fracture of the proximal left femoral diaphysis. Electronically signed by: Allen Olson DO 12/23/2023 05:28 AM CDT RP 4ZDM Due to temporary technical issues with the PACS/[employer] reporting system, reports are being magalis d by the in-house radiologist without review as a courtesy to ensure prompt reporting the interpreting radiologist is fully responsible for the content of the report. Transcribed Date/Time: 12/23/2023 6:13 AM
--- NOTE | 2023-12-23 06:14 | RAD REPORT ---
EXAM DESCRIPTION: Femur Left CLINICAL HISTORY: PAIN COMPARISON: None. FINDINGS: 2 views of the left femur. Left total knee arthroplasty. Left total hip arthroplasty. Acute appearing fracture of the proximal left femoral diaphysis. Osteopenia. Atherosclerosis. IMPRESSION: Acute appearing periprosthetic nondisplaced fracture of the proximal left femoral diaphysis. Electronically signed by: Allen Olson DO 12/23/2023 05:28 AM CDT RP 4ZDM Due to temporary technical issues with the PACS/[employer] reporting system, reports are being magalis d by the in-house radiologist without review as a courtesy to ensure prompt reporting the interpreting radiologist is fully responsible for the content of the report. Transcribed Date/Time: 12/23/2023 6:14 AM
--- NOTE | 2023-12-23 06:15 | RAD REPORT ---
EXAM DESCRIPTION: Knee Left 3 View CLINICAL HISTORY: PAIN COMPARISON: None. FINDINGS: 3 views of the left knee. No acute fracture or dislocation. Osteopenia. Left total knee arthroplasty. No definite joint effusion. IMPRESSION: No acute fracture or dislocation of the left knee. Electronically signed by: Allen Olson DO 12/23/2023 05:27 AM CDT RP 4ZDM Due to temporary technical issues with the PACS/[employer] reporting system, reports are being magalis d by the in-house radiologist without review as a courtesy to ensure prompt reporting the interpreting radiologist is fully responsible for the content of the report. Transcribed Date/Time: 12/23/2023 6:15 AM
--- NOTE | 2023-12-23 06:17 | RAD REPORT ---
EXAM DESCRIPTION: Tib Fib Left CLINICAL HISTORY: PAIN COMPARISON: None. FINDINGS: 2 views of the left tibia/fibula. No acute fracture or dislocation. Osteopenia. Le ft total knee arthroplasty. IMPRESSION: No acute fracture or dislocation of the left tibia/fibula. Electronically signed by: Allen Olson DO 12/23/2023 05:25 AM CDT RP 4ZDM Due to temporary technical issues with the PACS/[employer] reporting system, reports are being magalis d by the in-house radiologist without review as a courtesy to ensure prompt reporting the interpreting radiologist is fully responsible for the content of the report. Transcribed Date/Time: 12/23/2023 6:17 AM
[2023-12-23 07:19] VITALS: BP 134/70; TEMP 97.2; O2SAT 96
--- NOTE | 2023-12-25 12:17 | EKG ---
Test Date: 2023-12-23 Test Time: 03:36:35 Executive Coach: AF MEASUREMENT RESULTS: Intervals: Rate: 57 GA: 166 QRSD: 88 QT: 472 QTc: 459 [place]: P: 78 GA: 166 QRS: -14 T: 80 INTERPRETIVE STATEMENTS: Sinus bradycardia Otherwise normal ECG No previous ECG available for comparison Electronically Signed On 12-25-23 12:15:38 [employer]FACE LOGGING SYSTEMS LOGGER by Jitendra Nielsen
== END 2023-12-23 06:45 | disposition short-term general hospital (02) ==
LOC: ER 02:55
DX: S72.112A Displaced fracture of greater trochanter of left femur, initial encounter for closed fracture (principal); M97.02XA Periprosthetic fracture around internal prosthetic left hip joint, initial encounter; N19 Unspecified kidney failure; W18.30XA Fall on same level, unspecified, initial encounter; E11.9 Type 2 diabetes mellitus without complications; I10 Essential (primary) hypertension; Z96.643 Presence of artificial hip joint, bilateral
CPT/HCPCS: 96361; 93005; 85025; 81001; 80048; 36415; 83735; 85610; 80076; 84484; 83880; 70450; 71250; 72125; 74176; 71045; 72170; 73502; 73562; 73552; 73590; 51702; 96375; 96374; 99285; J3010; J2405; J7030